=== PATIENT | male | born 1995 | race Caucasian/White ===

== ENCOUNTER 2017-03-27 10:22 | Emergency (ER) | payer SELFPAY ==
[~2017-03-27] VITALS: Ht 188 cm; Wt 85.6 kg
[2017-03-27 10:30] VITALS: BP 136/69; PULSE 93; TEMP 98.2
[2017-03-27 11:30] LABS: INFLUENZA A NEGATIVE; INFLUENZA B NEGATIVE
== END 2017-03-27 11:42 | disposition home or self-care (01) ==
LOC: COL.ER 10:22
PROVIDERS: Physician Assistant
DX: J02.8 Acute pharyngitis due to other specified organisms (principal); B97.89 Other viral agents as the cause of diseases classified elsewhere; F17.200 Nicotine dependence, unspecified, uncomplicated